=== PATIENT | female | born 1990 ===

== ENCOUNTER 2018-01-06 07:26 | Inpatient (IN) | payer BC ==
[~2018-01-06] VITALS: Ht 157.5 cm; Wt 95.5 kg
[2018-02-25] VITALS (19 sets, daily range): BP systolic 98–128; BP diastolic 46–84; PULSE 58–82; TEMP 98–98.6
[2018-02-25 06:21] LABS: BASO % 0.2 % (0.0-2.0); EOS # 0.1 (0.0-0.7); EOS % 0.8 % (0-4.0); GRAN # 6.4 (1.4-6.5); GRAN % 69.6 % (42.2-75.2); HEMATOCRIT 39.9 % (37.0-47.0); HEMOGLOBIN 13.8 g/dl (12.5-16.0); LYMPH % 21.5 % (20.0-51.0); MEAN CELL VOLUME 92 fl (80.0-100.0); MEAN CORPUSCULAR HEMOGLOBIN 32 pg (27.0-31.0); MEAN CORPUSCULAR HGB CONC 35 g/dl (33.0-37.0); MEAN PLATELET VOLUME 10.5 fl (7.4-10.4); MONO # 0.7 (0.1-0.6); MONO % 7.2 % (1.7-9.3); PLATELET COUNT 142 K/mm3 (130-400); RED BLOOD COUNT 4.34 M/mm3 (4.10-5.30); REDCELL DISTRIBUTION WIDTH-CV 13.2 % (11.5-14.5)
[2018-02-25] MEDS ORDERED: PROFERRIN ES12 MG PO (06:40)
[2018-02-25] MEDS ORDERED: VTAMINC250TA (06:40)
[2018-02-25] MEDS ORDERED: FOLIC ACID0.4 MG PO (06:40)
[2018-02-25] MEDS ORDERED: PRENATAL (06:40)
[2018-02-25] MEDS ORDERED: CRANBERRY FRUI425 MG PO (06:41)
[2018-02-26 07:30] VITALS: BP 129/63; PULSE 68; TEMP 97.8
[2018-02-26 16:07] VITALS: BP 112/66; PULSE 58; TEMP 97.7
[2018-02-26 20:46] VITALS: BP 121/64; PULSE 57; TEMP 98.6
[2018-02-27 07:06] VITALS: BP 126/65; PULSE 71; TEMP 98
[2018-02-27] MEDS ORDERED: NORCO 325 MG-51 TAB PO (09:04)
[2018-02-27] MEDS ORDERED: IBU800 M1 PO (09:04)
== END 2018-02-27 13:50 | disposition home or self-care (01) | DRG 788 ==
LOC: OB 02-25 05:23 → LDR 02-25 07:26 → OB 02-27 13:50
PROVIDERS: Student in an Organized Health Care Education/Training Program
PROC: 10D00Z1 Extraction of Products of Conception, Low, Open Approach (ICD-10-PCS; principal; 2018-02-25)
DX: O34.211 Maternal care for low transverse scar from previous cesarean delivery (principal); Z3A.39 39 weeks gestation of pregnancy; Z37.0 Single live birth; O99.214 Obesity complicating childbirth
CPT/HCPCS: J0690; J1885; J2370; J2405; J2590; J7120